=== PATIENT | female | born 1985 | race Caucasian/White ===

== ENCOUNTER 2021-04-13 05:52 | Day surgery (SDC) | payer OTHER ==
[2021-04-08 14:59] VITALS: BMI 26.6
[~2021-04-13 05:52] MED LIST: ACETAMINOPHEN TAB 500 MG TAB PO PRN; DEXAMETHASONE SOD PHOSPHATE 4 MG/ML 1 ML VIAL IV ONE; HEPARIN SODIUM,PORCINE/PF 5,000 UNIT/0.5 ML SYRINGE SQ PRN; ONDANSETRON 4 MG/2 ML VIAL IVP ONE
[2021-04-13] MEDS: LACTATED RINGERS 1,000 ML IV SCH ×2 (06:36→07:45)
[2021-04-13] MEDS ORDERED: BUPIVACAINE (PF) 0.5% 30 ML VIAL SQ ONE ×2 (07:33→08:11)
[2021-04-13] MEDS ORDERED: LIDOCAINE 1% INJ 10MG/ML (20 ML MDV) ONE (07:45)
[2021-04-13] MEDS ORDERED: fentaNYL (PF) 50 MCG/ML 2 ML AMP ONE (07:45)
[2021-04-13] MEDS ORDERED: GLYCOPYRROLATE 0.2 MG/ML 2 ML VIAL ONE (07:45)
[2021-04-13] MEDS ORDERED: ROCURONIUM 10 MG/ML (5 ML VIAL) IV ONE (07:45)
[2021-04-13] MEDS ORDERED: PROPOFOL 10 MG/ML 20 ML VIAL IV ONE (07:45)
[2021-04-13] MEDS ORDERED: KETOROLAC 15 MG/ML 1 ML VIAL ONE (07:45)
[2021-04-13] MEDS ORDERED: MIDAZOLAM 2 MG/2 ML VIAL ONE (07:45)
[2021-04-13] MEDS ORDERED: HYDROmorphone (PF) 1 MG/ML ONE (07:45)
[2021-04-13] MEDS ORDERED: NEOSTIGMINE 1 MG/ML 10 ML VIAL ONE (07:45)
[2021-04-13] MEDS ORDERED: KETAMINE 10 MG/ML 20 ML VIAL ONE (07:45)
[2021-04-13] MEDS ORDERED: LACTATED RINGERS 1,000 ML IV ONE (08:41)
--- NOTE | 2021-04-13 08:44 | P.GSHP ---
History of Present Illness H&P Date: 04/13/21 Chief Complaint: Umbilical hernia Is a 36-year-old female who has developed pain at her umbilicus. Patient was seen by her primary care doctor found have a umbilical hernia. She presents today for laparoscopic repair. Past Medical History Additional Past Medical History / Comment(s): HX HPV. HERNIATED DISC IN BACK. UMBILICAL HERNIA History of Any Multi-Drug Resistant Organisms: None Reported Additional Past Surgical History / Comment(s): D & C. PART OF CERVIX REMOVED R/T HPV Past Anesthesia/Blood Transfusion Reactions: No Reported Reaction Smoking Status: Former smoker - Past Family History Father Family Medical History: Cancer, Deep Vein Thrombosis (DVT) Medications and Allergies Home Medications Medication Instructions Recorded Confirmed Type Dextroamphetamine/Amphetamine 5 mg PO DAILY 04/08/21 04/13/21 History [Adderall] Escitalopram [Lexapro] 20 mg PO DAILY 04/08/21 04/13/21 History HYDROcodone/APAP 10-325MG [[place] 0.5 tab PO Q6HR PRN 04/08/21 04/13/21 History 10-325] Allergies Allergy/AdvReac Type Severity Reaction Status Date / Time No Known Allergies Allergy Verified 04/13/21 06:18 Surgical - Exam Vital Signs Temp Pulse Resp BP Pulse Ox 98.9 F 68 16 116/65 100 04/13/21 06:27 04/13/21 06:27 04/13/21 06:27 04/13/21 06:27 04/13/21 06:27 - General well developed, well nourished, no distress - Eyes PERRL - ENT normal pinna - Neck no masses - Respiratory normal expansion - Cardiovascular Rhythm: regular - Abdomen Abdomen: soft, non tender Hernia: umbilical Assessment and Plan Assessment: Umbilical hernia. We'll for laparoscopic robotic-assisted repair.
--- NOTE | 2021-04-13 08:46 | P.OP ---
Date of Procedure: 04/13/21 Preoperative Diagnosis: Incarcerated umbilical hernia Postoperative Diagnosis: Incarcerated umbilical hernia Procedure(s) Performed: Laparoscopic robotic system repair of incarcerated umbilical hernia Partial omentectomy Anesthesia: HIREN Surgeon: Anup Younger Estimated Blood Loss (ml): 5 Pathology: other (Omentum) Condition: stable Disposition: PACU Description of Procedure: TThe patient was placed on the operating table in the supine position. He received general anesthesia. His abdomen was prepped and draped usual fashion. Using a 5 mm optical trocar under direct visualization the peritoneal cavity was entered in the left upper quadrant. The abdomen was then insufflated. The laparoscope was placed back into the perineal cavity. Next a 8 mm robotic trocar was placed in the left lower quadrant and a 12 mm robotic trocar was placed in the left lateral position. The original 5 mm trocar was exchanged for a 8 mm robotic trocar. The patient's placed in the left side up position. And the patient was undocked the robot. The umbilical hernia was visualized. Using hook cautery the peritoneum over the umbilical hernia was excised. The incarcerated omentum was dissected free and sent to pathology. The fascial opening was repaired using 0V LOC suture. Next a piece of 11 cm round ventral light ST mesh was placed into the. Cavity and secured with 2 OV lock suture. The patient was undocked the robot. The needles were retrieved. The fascia of the 12 mm trocar site was closed with 0 Ethibond suture. Skin was closed interrupted 3-0 Monocryl suture. Dermabond dressings was applied. Patient top procedure well and was sent to recovery room stable condition.
[2021-04-13 08:57] VITALS: TEMP 97.1
[2021-04-13] MEDS: HYDROmorphone 0.5 MG/0.5 ML SYRINGE IVP PRN ×2 (08:57→09:07)
[2021-04-13 09:51] VITALS: BP 115/78; PULSE 78; RESP 18
== END 2021-04-13 11:05 | disposition home or self-care (01) ==
LOC: OR 05:52
PROVIDERS: ATTEND Surgery
DX: K42.0 Umbilical hernia with obstruction, without gangrene (principal); Z87.891 Personal history of nicotine dependence; F98.8 Other specified behavioral and emotional disorders with onset usually occurring in childhood and adolescence; M51.26 Other intervertebral disc displacement, lumbar region; Z80.9 Family history of malignant neoplasm, unspecified
CPT/HCPCS: 49653; 81025; 88305; C1781; J2250; J1100; J2710; J0690; J2405; J2001; J3010; J1170 ×2; J1885; J2704; J1644